=== PATIENT | male | born 1955 | race Caucasian/White ===

== ENCOUNTER 2018-04-17 12:20 | Emergency (ER) | payer MEDICARE, OTHER ==
--- NOTE | 2018-04-17 12:24 | ED Physician Documentation ---
General Adult - HISTORIAN Historian: patient - HPI Stated Complaint: fever and dysuria Chief Complaint: Fever Onset: days ago (2) Further Comments: yes (He reports 48 hours ago he started to feel weak and then notes a fever that started about 4-6 hours later. He states the fever is 101.9 and was treated with Ibuprofen and did drop fever. However he continues to feel pain with urination and weaknes. Loss of appeitie. No sick contacts that he is aware of at this time) - ROS CONST: fever, weakness EYES/ENT: none CVS/RESP: denies: shortness of breath, cough GI/: problems urinating, nausea. denies: vomiting, diarrhea MS/SKIN/LYMPH: denies: rash NEURO/PSYCH: headache - PAST HX Past History: hypertension Other History: diabetes Type 2 Immunizations: UTD Home Medications: Ambulatory Orders Medication Instructions Recorded Aspirin [Aspir 81] 81 mg PO DAILY #30 u2 04/16/18 Citalopram Hydrobromide [Celexa] 40 mg PO DAILY #30 u2 04/16/18 Glipizide [Glucotrol] 10 mg PO BID #60 u2 04/16/18 Insulin NPH Human Isophane 10 unit SQ BID 04/16/18 [Humulin N] Magnesium Oxide 400 mg PO BID #60 u2 04/16/18 Metformin HCl 1,000 mg PO BID #60 u2 04/16/18 Pioglitazone HCl 45 mg PO DAILY #30 u2 04/16/18 Propranolol HCl [Propranolol Hcl 240 mg PO DAILY av 04/16/18 Er] Sildenafil Citrate [Viagra] 100 mg PO DAILY #30 u2 04/16/18 Vitamin B Complex 1 each PO DAILY #30 u2 04/16/18 Zolpidem Tartrate [Ambien] 10 mg PO HS PRN #30 u2 04/16/18 - SOCIAL HX Smoking History: non-smoker Alcohol Use: none Drug Use: none - FAMILY HX Family History: No - REVIEWED ASSESSMENTS Nursing Assessment Reviewed: Yes Vitals Reviewed: Yes Progress - Progress Progress: 1335: complaint of chills and headache - DG 1410: results discussed. Headache is improved. Plan discussed he and are agreeable DG ED Results Lab/Radiology - Radiology Radiology Impressions: Examination: PA and lateral chest. History: Evaluate lung contreras. FEVER, WEAKNESS X2-3 DAYS (Hx) Comparison exam: None provided. Findings: PA and lateral views of the chest demonstrates a normal cardiac and mediastinal silhouette. No focal infiltrate. No blunting of the costophrenic margins. Osseous structures are appropriate for age. Impression: No acute pulmonary process. Electronically signed on Apr 17, 2018 2:05:40 PM REPAIR DEPARTMENT MANAGER by: Oscar Broderick General Adult Physical Exam - PHYSICAL EXAM GENERAL APPEARANCE: no distress EENT: eye inspection normal, dry mucous membranes NECK: normal inspection RESPIRATORY: no resp distress, chest non-tender, breath sounds normal CVS: reg rate & rhythm, heart sounds normal, equal pulses, no murmur ABDOMEN: soft, normal bowel sounds, no distension, non-tender BACK: normal inspection, no CVA tenderness SKIN: warm/dry, normal color EXTREMITIES: non-tender, no edema NEURO: oriented X3 Discharge Clincal Impression: UTI (urinary tract infection) Qualifiers: Urinary tract infection type: site unspecified Hematuria presence: without hematuria Qualified Code(s): N39.0 - Urinary tract infection, site not specified Referrals: Primary Doctor,No [Primary Care Provider] - 2 Days Comments: 1. Cipro 500 mg take 1 by mouth twice daily x 10 days 2. Pyridum 100 mg take 1 by mouth three times a day x 3 days 3. Zofran 4 mg take 1 by mouth every 8 hours as needed for nausea 4. Increase fluids 5. See PCP in 2-4 days 6. Return to ER for any concerns meds called in to [facility] per pt request Condition: Stable Disposition: 01 HOME, SELF-CARE Decision to Admit: NO Date of Decison to Admit: 04/17/18 Decision Time: 14:17
[2018-04-17] MEDS ORDERED: 0.9 % SODIUM CHLORIDE 1,000 ML IV ONE (12:39)
[2018-04-17 12:49] LABS: APPEARANCE,URINE CLOUDY (CLEAR); COLOR,URINE AMBER (YELLOW)
[2018-04-17 12:50] LABS: OCCULT BLOOD,URINE 2+ (NEGATIVE); PH URINE 5.5 (5.0 - 8.0)
[2018-04-17 13:14] LABS: MEAN CORPUSCULAR HEMOGLOBIN 30.3 pg (28.0-34.0)
[2018-04-17 13:15] LABS: BASOPHILS % 0.7 (0.0-1.5); EOSINOPHILS % 2.1 % (0.0-6.8); MONOCYTES % 8.5 % (0.0-11.0); NEUTROPHILS # 8.7 # k/uL (1.4-7.7)
[2018-04-17 13:32] LABS: eGFR (Non-African) > 60
[2018-04-17] MEDS ORDERED: KETOROLAC TROMETHAMINE 30 MG/1ML VIAL IVP ONE (13:34)
[2018-04-17] MEDS ORDERED: 0.9 % SODIUM CHLORIDE 500 ML IV ONE (13:34)
[2018-04-17 14:33] VITALS: BP 121/47
--- NOTE | 2018-04-17 17:26 | Diagnostic Imaging Report ---
TANA TILLMAN [facility] [id number] [facility] [address] [place], [place]. [address] Report Submission Date: Apr 17, 2018 2:05:40 PM FACILITIES MECHANICAL DESIGN ENGINEER Patient Study Name: PARIS MORALES Date: Apr 17, 2018 1:39:46 PM FACILITIES MECHANICAL DESIGN ENGINEER Modality Type: DX Gender: M Description: CHEST : 55 Institution: [facility] Physician: TANA TILLMAN Examination: PA and lateral chest. History: Evaluate lung contreras. FEVER, WEAKNESS X2-3 DAYS (Hx) Comparison exam: None provided. Findings: PA and lateral views of the chest demonstrates a normal cardiac and mediastinal silhouette. No focal infiltrate. No blunting of the costophrenic margins. Osseous structures are appropriate for age. Impression: No acute pulmonary process. Electronically signed on Apr 17, 2018 2:05:40 PM FACILITIES MECHANICAL DESIGN ENGINEER by: Oscar HERNANDEZ
== END 2018-04-17 14:20 | disposition home or self-care (01) ==
LOC: ED 12:20
DX: N39.0 Urinary tract infection, site not specified (principal); B96.20 Unspecified Escherichia coli [E. coli] as the cause of diseases classified elsewhere
CPT/HCPCS: 36415; 71046; 80053; 81002; 85025; 87040; 87086; 87186; 87400; 96365; 96366; 96375; 99283; 99284; J1885; J7030; J7060; S1016